=== PATIENT | male | born 1960 | race Caucasian/White ===

== ENCOUNTER → 2019-03-23 | Outpatient (CLI) | payer SELFPAY ==
[~2019-03-23] MED LIST: ASPIRIN ADULT L81 M1 PO; CLEOCIN150 MG PO; GLYBURIDE5 MG PO; HYDR25T PO; HYDROCODONE BIT1 T11 PO; LANTUS100 U/ML SC; LIPITOR40 MG PO; LISINOPRIL HCTZ1 TA1 PO; LISINOPRIL/HCTZ1 TA5 PO; METFORMIN HCL500 M2 PO; METFORMIN1000 MG PO; METOPROLOL25 MG PO; NAPROSYN500 MG PO; NEURONTIN PO; NEURONTIN100 MG PO; TRICOR145 MG PO; VITAMIN D5000 UNI1 PO; ZANTAC 150150 MG PO; Zestril,Prinivi40 MG PO
== END | disposition home or self-care (01) ==
LOC: RESCLI 02:33
DX: E11.65 Type 2 diabetes mellitus with hyperglycemia (principal); E78.5 Hyperlipidemia, unspecified; E11.42 Type 2 diabetes mellitus with diabetic polyneuropathy; I25.10 Atherosclerotic heart disease of native coronary artery without angina pectoris; F17.210 Nicotine dependence, cigarettes, uncomplicated; E55.9 Vitamin D deficiency, unspecified; I10 Essential (primary) hypertension; Z76.89 Persons encountering health services in other specified circumstances; Z79.899 Other long term (current) drug therapy

== ENCOUNTER 2020-08-24 13:06 | Emergency (ER) | payer MEDICAID ==
[~2020-08-24] VITALS: Wt 83.9 kg
[2020-08-24 13:33] LABS: BASO # 0.1 10*3/uL (0.0-0.1); BASO % 0.6 % (0.0-1.0); EOS # 0.4 10*3/uL (0.0-0.4); EOS % 4.2 % (1.0-4.0); HEMATOCRIT 47.4 % (42.0-52.0); LYMPH # 1.4 10*3/uL (1.3-4.4); LYMPH % 15.4 % (27.0-41.0); MEAN CELL VOLUME 86.2 fl (80.0-94.0); MEAN CORPUSCULAR HGB 29.1 pg (27.0-31.0); MEAN CORPUSCULAR HGB CONC 33.8 g/dl (33.0-37.0); MEAN PLATELET VOLUME 10.4 fl (9.6-12.3); MONO # 0.3 10*3/uL (0.1-1.0); MONO % 3.1 % (3.0-9.0); NEUT # 6.8 10*3/uL (2.3-7.9); NEUT % 76.4 % (47.0-73.0); PLATELET COUNT AUTOMATED 237 10*3/uL (130-400); RED CELL DISTRI WIDTH 12.3 % (0-14.5); WHITE BLOOD COUNT 8.9 10*3/uL (4.8-10.8)
[2020-08-24 13:44] LABS: ACT PARTIAL THROMBO TIME 26.3 SECONDS (20.0-32.1)
[2020-08-24 13:50] LABS: ALBUMIN 2.7 gm/dl (3.1-4.5); CREATININE 1.5 mg/dL (0.70-1.30); POTASSIUM 4.2 mmol/L (3.5-5.1); TOTAL PROTEIN 7.2 gm/dL (6.4-8.2); TROPONIN I 0.038 ng/ml (<0.045)
== END 2020-08-24 14:35 | disposition short-term general hospital (02) ==
LOC: ED 13:06
PROVIDERS: Emergency Medicine
DX: I63.9 Cerebral infarction, unspecified (principal); I10 Essential (primary) hypertension; E11.9 Type 2 diabetes mellitus without complications; C80.1 Malignant (primary) neoplasm, unspecified; Z79.899 Other long term (current) drug therapy; Z79.84 Long term (current) use of oral hypoglycemic drugs

== ENCOUNTER 2023-01-10 06:33 | Emergency (ER) | payer OTHER ==
[~2023-01-10] VITALS: Ht 177.8 cm; Wt 82.6 kg
[2023-01-10 07:26] LABS: HEMATOCRIT 29.9 % (42.0-52.0); MEAN CELL VOLUME 98.4 fl (80.0-94.0); MEAN CORPUSCULAR HGB 30.3 pg (27.0-31.0); MEAN CORPUSCULAR HGB CONC 30.8 g/dl (33.0-37.0); MEAN PLATELET VOLUME 11.4 fl (9.6-12.3); NUCLEATED RED BLOOD CELL 0.4 10*3/uL (0.0-0.0); NUCLEATED RED BLOOD CELL 2.9 % (0.0-0.0); PLATELET COUNT AUTOMATED 357 10*3/uL (130-400); RED BLOOD COUNT 3.04 10*6/uL (4.50-5.90); RED CELL DISTRI WIDTH 14.3 % (0-14.5); WHITE BLOOD COUNT 14.7 10*3/uL (4.8-10.8)
[2023-01-10 07:32] LABS: MANUAL DIFF REFLEX YES
[2023-01-10 07:35] LABS: BILIRUBIN 1+ (Negative); BLOOD 1+ (Negative); CLARITY Cloudy (Clear); COLOR Dark Yellow (Yellow); GLUCOSE 3+ (Negative); KETONE Trace (Negative); LEUKO ESTERASE Negative (Negative); NITRITE Negative (Negative); SPECIFIC GRAVITY 1.025 (1.001-1.030); UROBILINOGEN 0.2 E.U./dl (0.0-1.0)
[2023-01-10 07:39] LABS: ACT PARTIAL THROMBO TIME 34.5 SECONDS (20.0-32.1); INTERNATIONAL NORM RATIO 3.8 (2.0-3.5)
[2023-01-10 07:52] LABS: ALKALINE PHOSPHATASE 56 U/L (46-116); BUN 88 mg/dl (9-23); CHLORIDE 99 mmol/L (98-107); TOTAL PROTEIN 6.6 gm/dL (6.0-8.0)
[2023-01-10 07:53] LABS: SGPT/ALT > 3300 U/L (10-49)
[2023-01-10 07:57] LABS: POTASSIUM 6.3 mmol/L (3.4-5.1)
[2023-01-10 08:05] LABS: BURR CELLS FEW; PLATELET SUFFICIENCY NORMAL (NORMAL); TOTAL CELLS COUNTED 100 #CELLS; TOXIC GRANULATION SLIGHT
[2023-01-10 08:14] LABS: BACTERIA 1+
[2023-01-17 12:07] LABS: ORGANISM ID Final report (.)
== END 2023-01-10 11:41 | disposition short-term general hospital (02) ==
LOC: ED 06:33
PROVIDERS: Emergency Medicine
DX: N17.9 Acute kidney failure, unspecified (principal); J96.01 Acute respiratory failure with hypoxia; E87.5 Hyperkalemia; K72.00 Acute and subacute hepatic failure without coma; Z90.49 Acquired absence of other specified parts of digestive tract; Z87.891 Personal history of nicotine dependence